=== PATIENT | female | born 1960 | race Caucasian/White ===

== ENCOUNTER 2017-12-08 15:54 | Observation (INO) ==
[2017-12-09 01:11] LABS: Creatine Kinase 46 U/L (26-192)
[2017-12-09 05:01] VITALS: TEMP 97.7
[2017-12-09 07:40] VITALS: BP 113/69; PULSE 80; RESP 12; O2SAT 98
--- NOTE | 2017-12-09 08:47 | P.HPCA ---
History of Present Illness Primary Care Physician: Disha Up Chief Complaint: Chest pain History of Present Illness: 57-year-old female with history of asthma and depression presents emergency room for further evaluation of chest pain. Onset 2 days ago. Location left anterior chest. Characterized as sharp. Duration seconds. Moderate in severity. Radiation to left arm. No associated symptoms of nausea, vomiting, dyspnea, or diaphoresis. No precipitating or relieving factors. Prescribed nitro sublingual and took x1 tablet without relief. Recent chemical stress test completed with her np, Dr. Robertson due to intermittent chest pain as described above. She was told there is a possible blockage but recommended following up with her security coordinator before any further cardiac testing. Seen her security coordinator who increased inhaler concentration. No recent illness, fever or injury. Past cardiac testing Reports recent Lexiscan last month with some type of abnormality. Social history No known diabetes, hypertension, or hyperlipidemia. Lifelong non-smoker. Denies any alcohol or recreational drug use. - Diagnosis (1) Atypical chest pain Review of Systems All other systems reviewed negative except as stated in [facility] - History History Provided By: Patient - Medical History Medical History: Medical History (Last Reviewed 12/09/17 @ 11:02 by RITA Montez) Asthma Gastric reflux Mitral valve prolapse Seasonal allergies - Surgical History Surgical History: Surgical History (Last Reviewed 12/09/17 @ 11:02 by RITA Montez) History of carpal tunnel repair Hx of section Hx of knee surgery Hx of tonsillectomy - Social History I have reviewed the patient's Social History: Yes - Tobacco History Second Hand Smoke Exposure: No Smoking Status: Never smoker - Alcohol History How Often Do You Have a Drink Containing Alcohol: Monthly or less - Substance Use History Substance History: No History of Abuse - Travel History History of Recent Travel: No Recent Travel in the [place] Within the Last 8 Weeks: No Recent Travel Out of the Country Within the Last 8 Weeks: No Medications and Allergies Active Medications: Active Medications Albuterol (Ventolin Hfa Inh) 2 puff INH TID PRN PRN Reason: RESPIRATORY DISTRESS Last Admin: 12/08/17 22:38 Dose: 2 puff Montelukast Sodium (Singulair) 10 mg PO HS [place] Last Admin: 12/08/17 22:38 Dose: 10 mg Allergies Allergy/AdvReac Type Severity Reaction Status Date / Time acetaminophen Allergy Severe RASH Verified 12/08/17 16:18 hydrocodone Allergy Severe Itching Verified 12/08/17 16:18 latex Allergy Severe TONGUE Verified 12/08/17 16:18 SWELLS DURING DENTAL PROCEDURE Home Medications Medication Instructions Recorded Confirmed Type albuterol sulfate 2 puff INHALATION TID PRN 12/08/17 12/08/17 History aspirin 81 mg PO DAILY 12/08/17 12/08/17 History bupropion HCl [Wellbutrin XL] 300 mg PO QAM 12/08/17 12/08/17 History montelukast [Singulair] 10 mg PO QPM 12/08/17 12/08/17 History nitroglycerin 0.4 mg SUBLINGUAL Q5-15M PRN 12/08/17 12/08/17 History omeprazole 20 mg PO DAILY 12/08/17 12/08/17 History Exam Vital signs: Vital Signs 12/08/17 22:45 12/09/17 01:27 12/09/17 04:00 Temperature 97.8 F 97.7 F Pulse Rate 90 100 H 91 H Respiratory Rate 16 16 17 Blood Pressure 117/72 113/60 126/72 Pulse Oximetry 100 96 97 12/09/17 05:03 12/09/17 07:37 Temperature 97.7 F Pulse Rate 83 80 Respiratory Rate 12 Blood Pressure 113/69 Pulse Oximetry 98 Intake & Output 12/08/17 12/09/17 12/09/17 18:59 06:59 18:59 Intake Total 720 / 720 Balance 720 / 720 Weight 111.13 kg Intake: Oral 720 / 720 Other: # Voids 2 Date of Last Bowel Movement 12/08/17 Weight On Admission 111.13 kg Narrative: GENERAL: Alert WN, WD, NAD, pleasant, , obese female HEAD: NC, AT EYES: Sclera clear, conjunctiva without injection, pupils equal and round ENT: Mucous membranes pink and moist CV: RRR, without murmur, rub, gallop, no JVD, S1-S2, chest pain nontender with palpation. RESP: Clear lungs throughout bilateral, slightly diminished, no crackles, wheeze , rhonchi, symmetrical chest rise, nonlabored, able to speak in full sentences ABD: Soft, NT, ND, no masses, positive bowel tones EXT: Pulses +2x4, trace bilateral lower extremity dependent edema MS: Normal tone x4 extremities, nontender, no obvious deformities, full range of motion NEURO: CN II through CN XII grossly intact, motor strength 5/5 PSYCH: A+O x3, pleasant affect, appropriate speech, mood, insight and judgment SKIN: Normal turgor, normal texture, no lesions, no rashes Results Cardiac Enzymes 12/08/17 Range/Units 22:32 Troponin I Less than 0.02 L (0.02-0.05) ng/mL Intake and Output 12/08/17 12/09/17 12/09/17 22:59 06:59 14:59 Intake Total 720 / 720 Balance 720 / 720 Intake: Oral 720 / 720 Other: # Voids 2 Date of Last Bowel Movement 12/08/17 Weight 111.13 kg Weight On Admission 111.13 kg EKG interpretations - EKG EKG results cardiology: sinus rhythm, normal axis (No specific ST-T segment change) Caprini VTE Risk Assessment Caprini VTE Risk Assessment: No/Low Risk (score <= 1) Caprini Risk Assessment Model: Point Value = 1 Point Value = 2 Point Value = 3 Point Value = 5 Age 41-60 Minor surgery BMI > 25 kg/m2 Swollen legs Varicose veins or History of unexplained or recurrent spontaneous Oral contraceptives or hormone replacement Sepsis (< 1 month) Serious lung disease, including pneumonia (< 1 month) Abnormal pulmonary function Acute myocardial infarction Congestive heart failure (< 1 month) History of inflammatory bowel disease Medical patient at bed rest Age 61-74 Arthroscopic surgery Major open surgery (> 45 min) Laparoscopic surgery (> 45 min) Malignancy Confined to bed (> 72 hours) Immobilizing plaster cast Central venous access Age >= 75 History of VTE Family history of VTE Factor V Leiden Prothrombin [id number] Lupus anticoagulant Anticardiolipin antibodies Elevated serum homocysteine Heparin-induced thrombocytopenia Other congenital or acquired thrombophilia Stroke (< 1 month) Elective arthroplasty Hip, pelvis, or leg fracture Acute spinal cord injury (< 1 month) Prophylaxis Regimen: Total Risk Factor Score Risk Level Prophylaxis Regimen 0-1 Low Early ambulation 2 Moderate Order ONE of the following: *Sequential Compression Device (SCD) *Heparin 5000 units SQ BID 3-4 Higher Order ONE of the following medications: *Heparin 5000 units SQ TID *Enoxaparin/Lovenox 40 mg SQ daily (WT < 150 kg, CrCl > 30 mL/min) *Enoxaparin/Lovenox 30 mg SQ daily (WT < 150 kg, CrCl > 10-29 mL/min) *Enoxaparin/Lovenox 30 mg SQ BID (WT < 150 kg, CrCl > 30 mL/min) AND/OR *Sequential Compression Device (SCD) 5 or more Highest Order ONE of the following medications: *Heparin 5000 units SQ TID (Preferred with Epidurals) *Enoxaparin/Lovenox 40 mg SQ daily (WT < 150 kg, CrCl > 30 mL/min) *Enoxaparin/Lovenox 30 mg SQ daily (WT < 150 kg, CrCl > 10-29 mL/min) *Enoxaparin/Lovenox 30 mg SQ BID (WT < 150 kg, CrCl > 30 mL/min) AND *Sequential Compression Device (SCD) Assessment and Plan - Assessment (1) Atypical chest pain Code(s): R07.89 - Other chest pain Status: Acute Plan: Admitted chest pain center. ACS ruled out with 3 sets of EKGs and cardiac enzymes. Seen and evaluated by Dr. Simone Shepherd. Call will be placed to Dr. Robertson for further recommendation and plan of care. 0930 Dr. Robertson return call to Dr. Simone Shepherd. Okay for discharge and Dr. Robertson requests to instruct her to follow up in his office within one week. H&P: Quality - VTE Deep Vein Thrombosis/Pulmonary Embolism Present on Admission: No
--- NOTE | 2017-12-09 14:51 | ECG ---
Date Performed: 12/08/2017 Time Performed: 22:39:25 PTAGE: 57 years EKG: Sinus rhythm LOW QRS VOLTAGE IN PRECORDIAL LEADS NONSPECIFIC T-WAVE ABNORMALITY BORDERLINE ECG PREVIOUS TRACING : 02/09/2015 11.11 Since previous tracing, no significant change noted DOCTOR: Simone Shepherd Interpretating Date/Time 12/09/2017 14:51:12
[2017-12-09] MEDS ORDERED: Montelukast 10 MG Tablet PO SCH (21:00)
== END 2017-12-09 10:24 | disposition home or self-care (01) ==
LOC: NEDDLT 20:45 → NEPHCDU 20:45
PROVIDERS: ADMIT Internal Medicine Interventional Cardiology; ATTEND Internal Medicine Interventional Cardiology